=== PATIENT | female | born 1995 | race Caucasian/White ===

== ENCOUNTER 2018-07-11 17:30 | Emergency (ER) | payer OTHER ==
[2018-07-11 18:25] LABS: Clarity Hazy (Clear); Leukocyte Large (Negative); Specific Gravity, Urine 1.015 (1.005-1.030)
[2018-07-11 18:26] LABS: Bilirubin Negative (Negative); Blood, Urine Large (Negative); Glucose, Urine (Dipstick) Negative (Negative); Nitrite Negative (Negative); Protein, Urine (Dipstick) Negative (Neg-Trace); Urobilinogen 0.2 mg/dL (0.2-1.0)
[2018-07-11 18:28] LABS: Bacteria/HPF Rare-Few HPF (None Seen); RBC/HPF 0-3 HPF (0-3); Squamous Epithelial 0-3 HPF (0-3)
== END 2018-07-11 18:35 | disposition home or self-care (01) ==
LOC: BURERS 17:30
DX: O86.20 Urinary tract infection following delivery, unspecified (principal); O91.22 Nonpurulent mastitis associated with the puerperium; Z79.899 Other long term (current) drug therapy
CPT/HCPCS: 81003; 81015; 87804; 99283